=== PATIENT | female | born 1945 | race Caucasian/White ===

== ENCOUNTER 2017-12-11 15:06 | Emergency (ER) | payer MEDICARE, OTHER ==
[~2017-12-11] VITALS: Ht 165.1 cm; Wt 60.0 kg
[2017-12-11 15:34] LABS: BASOPHILS # (AUTO) 0.05 x10^3/uL (0-0.1); BASOPHILS % (AUTO) 1 % (0-1); EOSINOPHILS # (AUTO) 0.04 x10^3/uL (0-0.4); EOSINOPHILS % (AUTO) 1 % (1-7); LYMPHOCYTES # (AUTO) 1.31 x10^3/uL (1-3.4); LYMPHOCYTES % (AUTO) 16 % (22-44); MD NO; MEAN CORPUSCULAR HEMOGLOBIN 29.4 pg (27.0-34.8); MEAN CORPUSCULAR HGB CONC 33.2 g/dL (32.4-35.8); MEAN CORPUSCULAR VOLUME 88.6 fL (80-100); MEAN PLATELET VOLUME 7.6 fL (7.4-10.4); MONOCYTES # (AUTO) 0.46 x10^3/uL (0.2-0.8); MONOCYTES % (AUTO) 6 % (2-9); NEUTROPHILS # (AUTO) 6.37 x10^3/uL (1.8-6.8); NEUTROPHILS % (AUTO) 77 % (42-75); PLATELET COUNT 282 x10^3/uL (130-400); RED BLOOD COUNT 4.79 x10^6/uL (3.82-5.3); RED CELL DISTRIBUTION WIDTH 13.1 % (9.6-15.2)
[2017-12-11 15:43] LABS: ALBUMIN 3.3 g/dL (3.4-5.0); ANION GAP 7 mmol/L (5-15); CALCIUM 8.5 mg/dL (8.5-10.1); CHLORIDE 104 mmol/L (98-107); CREATININE 0.71 mg/dL (0.55-1.02)
[2017-12-11 15:47] LABS: TROPONIN I < 0.015 ng/mL (0.000-0.045)
[2017-12-11 17:46] LABS: MICROSCOPIC INDICATED
[2017-12-11 18:02] LABS: CULTURE INDICATED? YES
[2017-12-11 18:34] VITALS: BP 142/80
[2017-12-11] MEDS ORDERED: OMNIPAQUE 350 MG/ML, 100ML BOTTLE ONE (20:15)
== END 2017-12-11 18:45 | disposition home or self-care (01) ==
LOC: ED 18:00
DX: R06.09 Other forms of dyspnea (principal); F41.1 Generalized anxiety disorder; N30.90 Cystitis, unspecified without hematuria; Z87.891 Personal history of nicotine dependence
CPT/HCPCS: 36415; 71045; 71275; 80048; 81001; 82040; 83880; 84484; 85025; 85379; 87086; 93005; 99285; Q9967

== ENCOUNTER 2018-02-09 11:32 | Emergency (ER) | payer MEDICARE, OTHER ==
[~2018-02-09] VITALS: Ht 165.1 cm; Wt 58.4 kg
[2018-02-09] MEDS ORDERED: ATOR20TA PO (11:41)
[2018-02-09] MEDS ORDERED: AMPH15CA PO (11:41)
[2018-02-09] MEDS ORDERED: HYDROcodone/APAP 5/325 TABLET ONE (12:30)
[2018-02-09] MEDS ORDERED: METHOCARBAMOL 750 MG TABLET PO ONE (12:30)
[2018-02-09] MEDS ORDERED: HYDROcodone/APAP 5/325 TABLET PO ONE (12:30)
[2018-02-09] MEDS ORDERED: METHOCARBAMOL 750 MG TABLET ONE (12:30)
[2018-02-09 12:53] VITALS: BP 159/63
== END 2018-02-09 13:15 | disposition home or self-care (01) ==
LOC: ED 13:10
DX: S70.02XA Contusion of left hip, initial encounter (principal); Z96.643 Presence of artificial hip joint, bilateral; W06.XXXA Fall from bed, initial encounter; Y93.89 Activity, other specified; Y92.098 Other place in other non-institutional residence as the place of occurrence of the external cause; Y99.8 Other external cause status
CPT/HCPCS: 99284